=== PATIENT | female | born 1970 | race Caucasian/White ===

== ENCOUNTER → 2021-07-15 13:24 | Outpatient (BNVA) | payer MEDICARE, OTHER, SELFPAY | PROVIDERS: Family Provider Family Medicine; PCP Family Medicine; Visit Provider Psychiatry & Neurology Psychiatry | DX: F43.12 Post-traumatic stress disorder, chronic (principal); F33.2 Major depressive disorder, recurrent severe without psychotic features; F41.1 Generalized anxiety disorder | CPT/HCPCS: 99204 ==

== ENCOUNTER → 2021-08-26 08:07 | Outpatient (BNVA) | payer MEDICARE, OTHER, SELFPAY | PROVIDERS: Family Provider Family Medicine; PCP Family Medicine; Visit Provider Psychiatry & Neurology Psychiatry | DX: F41.1 Generalized anxiety disorder (principal); F33.2 Major depressive disorder, recurrent severe without psychotic features; F43.12 Post-traumatic stress disorder, chronic | CPT/HCPCS: 99214 ==

== ENCOUNTER → 2022-07-14 16:29 | Outpatient (BNVA) | payer MEDICARE, SELFPAY | PROVIDERS: Family Provider Family Medicine; PCP Family Medicine; Visit Provider Nurse Practitioner Psychiatric/Mental Health | DX: Z03.89 Encounter for observation for other suspected diseases and conditions ruled out (principal); F41.1 Generalized anxiety disorder; F43.12 Post-traumatic stress disorder, chronic; F33.41 Major depressive disorder, recurrent, in partial remission | CPT/HCPCS: 80306 ==

== ENCOUNTER → 2022-07-27 11:49 | Outpatient (BNVA) | payer MEDICARE, OTHER, SELFPAY | PROVIDERS: Family Provider Family Medicine; PCP Family Medicine; Visit Provider Nurse Practitioner Psychiatric/Mental Health | DX: Z03.89 Encounter for observation for other suspected diseases and conditions ruled out (principal) | CPT/HCPCS: 80306 ==

== ENCOUNTER 2023-05-17 10:33 | Outpatient (CLI) | payer MEDICARE, OTHER, SELFPAY ==
--- NOTE | 2023-05-17 10:44 | MM_ITS ---
WS: [id number] BILATERAL SCREENING DIGITAL TOMOSYNTHESIS MAMMOGRAM WITH CAD HISTORY: SCREENING COMPARISON: 01/26/2022, 10/07/2020 Bilateral CC and MLO views with tomosynthesis and synthetic mammography submitted. Computer aided det ection analyzed. Breast composition: There are scattered areas of fibroglandular density. No suspicious masses, microc alcifications or architectural distortion. Battery pack generator over the RIGHT pectoralis muscle. MM/[place] [id number] IMPRESSION: BI-RADS: 2-Benign FOLLOW UP: 1 Year Follow-up
== END 2023-05-17 10:34 | disposition home or self-care (01) ==
LOC: RAD 10:40 → MOBLMAM 10:42
PROVIDERS: PCP Family Medicine; Visit Provider Family Medicine
DX: Z12.31 Encounter for screening mammogram for malignant neoplasm of breast (principal)
CPT/HCPCS: 77063; 77067

== ENCOUNTER 2023-12-14 12:54 | Inpatient (IN) | payer MEDICARE, OTHER, SELFPAY ==
[2023-12-14] VITALS (8 sets, daily range): BP systolic 150–193; BP diastolic 84–139; PULSE 97–117; RESP 18; TEMP 36.7–36.9; O2SAT 94–97; BMI 32.9
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
[2023-12-14 13:15] LABS: Basophils # 0.1 10^3/uL (0.0-0.1); Basophils % 0.5 %; Eosinophils % 0.2 %; Hematocrit 49.2 % (36-47); Lymphocytes # 1.1 10^3/uL (0.8-4.8); Lymphocytes % 10.1 %; Mean Corpuscular HGB Conc 31.9 g/dL (30-55); Mean Corpuscular Volume 87.9 fl (85-98); Mean Platelet Volume 11.1 fL (7.4-10.4); Monocytes # 0.6 10^3/uL (0.2-0.9); Monocytes % 5.9 %; Neutrophils # 8.86 10^3/uL (1.8-7.7); Nucleated Red Blood Cells % 0 %; Platelet Count 239 10^3/cmm (157-399); Red Cell Distribution Width 13.4 % (12.1-15.1); White Blood Count 10.67 10^3/uL (3.29-11.43)
[2023-12-14 13:31] LABS: Acetaminophen < 5.0 ug/mL (10-30); Alanine Aminotransferase 54 U/L (0-33); Albumin Level 4.5 g/dL (3.5-5.2); Alkaline Phosphatase 72 U/L (35-105); Anion Gap 16.2 (5-19); Aspartate Amino Transferase 33 U/L (0-32); Blood Urea Nitrogen 23 mg/dL (6-20); Calcium 9.6 mg/dL (8.5-10.5); Carbon Dioxide 25 mmol/L (22-29); Chloride 101 mmol/L (98-107); Glomerular Filtration Rate 75.6 mL/min (90-130); Glucose 110 mg/dL (65-115); Osmolality Calculated 290 mOsm/kg (285-295); Potassium 4.2 mmol/L (3.5-5.1); Salicylate < 0.3 mg/dL (3-10); Sodium 138 mmol/L (136-145); Total Bilirubin 0.7 mg/dL (0.15-1.2); Total Protein 7.5 g/dL (6.6-8.7)
[2023-12-14 13:57] LABS: Influenza A by IFA negative (Negative); Influenza B by IFA negative (Negative)
--- NOTE | 2023-12-14 14:38 | PC.NURSE ---
96 hour hold rights read and reviewed with patient. Patient very tearful stating I don't want to see my family, I cant tell you why or what I know. But I know if the don't come see me I will have my answer. Patient continued to cry, but verbalized understandings of rights. Copy left at bedside.
--- NOTE | 2023-12-14 15:56 | PC.NURSE ---
Patient arrived to unit appearing very anxious. This RN began her assessment and patient was initially cooperative in answering questions. She stated she couldn't remember a lot because she has a TBI and short-term memory loss. When asked if she was allergic to anything other than statins, as that was already listed on her profile, she began crying and replied, I can't trust you. You talked to my family! I told you not to talk to my family. It was then explained that I hadn't talked to her family, but that I had simply seen it on her medical history profile. She continued to insist that this nurse had talked to her family and stated, I'm not talking to you unless you can guess the movie. Either guess the movie that I'm thinking or we're done. Patient continued to cry and said, Andrea is the only one who knows how I feel, but really he doesn't know how I feel! I don't want you to talk to my family. I can't trust you. We're done. She was assured we would not be talking to her family unless she would like us to due to HIPAA and that we had not talked to them. Patient continued to refuse to talk to this RN.
[2023-12-14] MEDS: lisinopril 20 mg Tablet PO ×2 (16:32→20:31)
--- NOTE | 2023-12-14 16:33 | PC.NURSE ---
Patient's blood pressure on arrival to unit was recorded as 180/139. Patient was given a bit of time to rest as she appeared anxious. Blood pressure was taken again and it was 193/[address] Meneses was contacted. He advised this RN give lisinopril 20mg po now and to recheck her blood pressure in 1 hr. Patient took medication and we will recheck in an hour.
--- NOTE | 2023-12-14 17:50 | PC.NURSE ---
Rechecked patient's blood pressure, which read 178/126. Dr. Meneses was notified and he requested this RN put in a one time order for clonidine 0.2mg po.
[2023-12-14] MEDS: cloNIDine 0.1 mg Tablet 0.2 MG PO (17:57)
--- NOTE | 2023-12-14 17:59 | PC.NURSE ---
Patient approached nurses' station and asked when she was supposed to go to bed. This RN told her there wasn't a specific time she was required to go to bed and that if she was feeling tired she could lie down. Patient said, are you sure I won't get in trouble? She was reassured she would not be in trouble. Patient then stated, and you can tell my family that I'm only drinking water if they ask.
[2023-12-14] MEDS: acetaminophen 325 mg Tablet 650 MG PO (18:13)
--- NOTE | 2023-12-14 20:13 | PC.NURSE ---
PT IS SITTING ON BED APPEARS ANXIOUS AND APPREHENSIVE TO SPEAK TO THIS RN. PT PRESENTS VERY PARANOID WONDERING WHY YOU HAVE ALL MY MEDICATIONS BECAUSE I DID NOT SIGN A RELEASE FOR ANY OF YOU TO HAVE THEM. I AM HERE VOLUNTARY AND YOU ARE NOT ALLOWED TO HAVE MY MEDICATIONS. THIS RN ATTEMPTED TO RE-ORIENTATE PT TO SURROUNDINGS AND THAT SHE IS ON A 96 HOUR HOLD AND WILL SEE THE DR. BLACK. EDUCATION COMPLETED ON MEDICATIONS AND WHY THE MEDICATIONS ARE IN THE CHART. PT THEN STATED OH THATS GOOD YOU HAVE MY MEDICINE, ITS REALLY GOOD MY MEDS ARE IMPORTANT. DENIES PAIN. DENIES SI/HI AND AVH AT THIS TIME. PT CONTINUES TO HAVE PARANOIA AND IS GUARDED WITH STAFF. RATES ANXIETY 150/10 WHEN ASKED TO RATE ANXIETY 0/10. PT STATED AFTER WHAT YOU ALL DID TO ME TODAY ITS REALLY UP THERE. RATES DEPRESSION 0/10. PT IS HAVING DELUSIONS AND MAKING BIZZARRE STATEMENTS. ALL QUESTIONS WERE ANSWERED AND SUPPORT WAS VOICED.
[2023-12-14] MEDS: prazosin 5 mg Capsule PO (20:31)
[2023-12-14] MEDS: trazodone 150 mg Tablet 300 MG PO (20:31)
[2023-12-14] MEDS: BuSPIRONE 10 mg Tablet 20 MG PO (20:31)
[2023-12-14] MEDS: prazosin 1 mg Capsule PO (20:31)
[2023-12-14] MEDS: baclofen 10 mg Tablet PO (20:32)
[2023-12-15 06:00] VITALS: BP 146/91; PULSE 100; RESP 16; TEMP 36.7; O2SAT 96
--- NOTE | 2023-12-15 06:08 | PC.NURSE ---
PT RESTED APPROXIMATELY 6-7 HOURS THIS SHIFT. PT WOKE UP SEVERAL TIMES TO USE THE BATHROOM AND FIDGETED AROUND IN HER ROOM. PRN MEDICATION WAS OFFERED BUT PT DECLINED. SUPPORT VOICED.
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
[2023-12-15] MEDS: levothyroxine 125 mcg Tablet PO (09:32)
[2023-12-15] MEDS: meloxicam 7.5 mg tablet PO (09:32)
[2023-12-15] MEDS: fluoxetine 20 mg Capsule 80 MG PO (09:32)
[2023-12-15] MEDS: baclofen 10 mg Tablet PO ×3 (09:32→20:32)
[2023-12-15] MEDS: buPROPion SR (12 HR) 100 mg Tablet 200 MG PO (09:32)
[2023-12-15] MEDS: ezetimibe 10 mg Tablet PO (09:32)
[2023-12-15] MEDS: lisinopril 20 mg Tablet PO ×2 (09:36→20:32)
[2023-12-15] MEDS: BuSPIRONE 10 mg Tablet 20 MG PO ×2 (09:36→20:31)
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
[2023-12-15 14:00] VITALS: BP 169/113; PULSE 85; RESP 16; TEMP 36.8; O2SAT 94
[2023-12-15 20:31] VITALS: RESP 18; O2SAT 95
[2023-12-15] MEDS: oxyCODONE-APAP 10-325 mg Tablet 1 TAB PO (20:31)
[2023-12-15] MEDS: trazodone 150 mg Tablet 300 MG PO (20:32)
[2023-12-15] MEDS: amlodipine 5 mg Tablet PO (20:32)
[2023-12-15] MEDS: prazosin 5 mg Capsule PO (20:32)
[2023-12-15] MEDS: prazosin 1 mg Capsule PO (20:32)
[2023-12-15 20:41] VITALS: BP 158/97; PULSE 99; RESP 16; TEMP 36.8; O2SAT 95
[2023-12-15 22:25] VITALS: BP 104/71; PULSE 99; RESP 16; O2SAT 93
[2023-12-16 06:00] VITALS: BP 124/84; PULSE 88; RESP 16; TEMP 36.4; O2SAT 94
--- NOTE | 2023-12-16 06:19 | PC.NURSE ---
PT HAS RESTED ON AND OFF THROUGHOUT THE SHIFT. DID WAKE BRIEFLY STATING SHE HAD A NIGHT TERROR AND IT WAS DIFFICULT TO GO BACK TO SLEEP. PT WAS ABLE TO REST AND HAS SLEPT APPROXIMATELY 7-8 HOURS THIS SHIFT. PT CURRENTLY RESTING IN BED AND SHOWS NO SIGNS OF DISTRESS.
[2023-12-16] MEDS: fluoxetine 20 mg Capsule 80 MG PO (07:58)
[2023-12-16] MEDS: ezetimibe 10 mg Tablet PO (07:58)
[2023-12-16] MEDS: baclofen 10 mg Tablet PO ×3 (07:58→20:27)
[2023-12-16] MEDS: meloxicam 7.5 mg tablet PO (07:58)
[2023-12-16] MEDS: levothyroxine 125 mcg Tablet PO (07:59)
[2023-12-16] MEDS: buPROPion SR (12 HR) 100 mg Tablet 200 MG PO (07:59)
[2023-12-16] MEDS: amlodipine 5 mg Tablet PO (07:59)
[2023-12-16] MEDS: BuSPIRONE 10 mg Tablet 20 MG PO ×2 (08:00→20:27)
[2023-12-16] MEDS: lisinopril 20 mg Tablet PO ×2 (08:00→20:27)
[2023-12-16 14:00] VITALS: BP 166/104; PULSE 96; RESP 20; TEMP 36.8; O2SAT 97
--- NOTE | 2023-12-16 14:12 | P.NPUPN_ITS ---
Subjective NPU 2 Subjective: 53-year-old with traumatic brain injury and history of anxiety and reported psychosis admitted with unusual behavior. Patient did not show any evidence of psychosis. She had appeared anxious and somewhat isolative on the milieu. She had reported having problems with working memory and stated that she had felt relieved that her may be coming home soon. She was pleasant and redirectable on the milieu. She showed no evidence of aggression. The patient had reported some difficulties with falling asleep. She had reported some pain issues. Mental Status Exam 2 MSE Comments: Patient is a casually dressed white female who was pleasant and cooperative on interview. Her gait was adequate her hygiene was fair. There was no evidence of any abnormal involuntary motor movements tics or tremors appreciated. Her speech was monotone in quality and normal in rate and volume. Her thought process Was linear logical and goal-directed. She endorsed no suicidal or homicidal ideation. She did not appear to be responding to internal stimuli. There was no clear evidence of delusional thinking. She described her mood as better. Her affect appeared less anxious and mood congruent. Her impulse control was fair. Her insight appeared limited. Her judgment was poor. Her recent and remote memory were not not tested. Her attention span appeared adequate. Vitals/I&O/Wt Last Vital Signs Temp 97.5 F L 12/16/23 06:00 Pulse 88 12/16/23 06:00 Resp 16 12/16/23 06:00 BP 124/84 12/16/23 06:00 Pulse Ox 94 12/16/23 06:00 O2 Del Method Room Air 12/16/23 06:00 Data NPU 12/14/23 13:08 12/14/23 13:08 A&P Assessment and plan (1) Post-traumatic stress disorder, chronic: (2) Major depressive disorder, recurrent severe without psychotic features: (3) Suicidal ideation: (4) Generalized anxiety disorder: Plan 53-year-old female with a history of traumatic brain injury with history of impulsivity admitted with bizarre behavior after becoming anxious stemming from her 's medical illness leading to hospitalization and some disagreement with her 's physicians. She will continue remain on the unit and examined for any evidence of unstable behavior. 1. ?Encourage individual, group and milieu therapy. 2. Recommend sober living treatment at the highest level of care to which the patient is willing to commit. 3. Continue q-15 minute checks for safety 4. Monitor for evidence of worsening psychosis. 5. Continue medications, patient appears better and may be candidate for discharge tomconrad. Involuntary Hold Information 2 96 Hour Hold: 96 Hour Involuntary Admission: Yes 96 Hour Hold Ending Date: 12/20/23 96 Hour Hold Ending Time: 14:26 Attestations NPU 2 Medical Necessity Statement*: Inpatient hospitalization is medically necessary and deemed to be the clinically appropriate intervention at this time.? Medications will be initiated and adjusted as clinically indicated.? The patient?s likely length of stay is 1-2 days.? Coding Level of Care Code Acute Code for g Fwd Diagnoses Post-traumatic stress disorder, chronic F43.12 Major depressive disorder, recurrent severe without psychotic features F33.2 Suicidal ideation R45.851 Generalized anxiety disorder F41.1
[2023-12-16 16:28] VITALS: BP 166/104
[2023-12-16] MEDS: cloNIDine 0.1 mg Tablet PO (16:28)
[2023-12-16 17:46] VITALS: BP 125/98
[2023-12-16 20:14] VITALS: BP 164/109; PULSE 90; RESP 18; TEMP 37.1; O2SAT 96
[2023-12-16] MEDS: prazosin 1 mg Capsule PO (20:27)
[2023-12-16] MEDS: prazosin 5 mg Capsule PO (20:27)
[2023-12-17 06:00] VITALS: BP 171/113; PULSE 77; RESP 15; TEMP 36.8; O2SAT 96
[2023-12-17] MEDS: meloxicam 7.5 mg tablet PO (08:23)
[2023-12-17] MEDS: ezetimibe 10 mg Tablet PO (08:23)
[2023-12-17] MEDS: baclofen 10 mg Tablet PO (08:23)
[2023-12-17] MEDS: fluoxetine 20 mg Capsule 80 MG PO (08:23)
[2023-12-17] MEDS: lisinopril 20 mg Tablet PO (08:23)
[2023-12-17] MEDS: amlodipine 5 mg Tablet PO (08:23)
[2023-12-17] MEDS: buPROPion SR (12 HR) 100 mg Tablet 200 MG PO (08:23)
[2023-12-17] MEDS: BuSPIRONE 10 mg Tablet 20 MG PO (08:23)
[2023-12-17] MEDS: levothyroxine 125 mcg Tablet PO (08:23)
[2023-12-17] MEDS: loperamide 2 mg Capsule PO (09:57)
[2023-12-17 12:26] VITALS: BP 171/113; PULSE 77; RESP 15; TEMP 36.8; O2SAT 96
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
== END 2023-12-17 13:43 | disposition home or self-care (01) | DRG 885 ==
LOC: ER 14:14 → NP 14:46
PROVIDERS: Admitting Provider Psychiatry & Neurology Psychiatry; Emergency Provider Family Medicine; PCP Family Medicine; Visit Provider Psychiatry & Neurology Psychiatry
DX: F33.2 Major depressive disorder, recurrent severe without psychotic features (principal); F43.12 Post-traumatic stress disorder, chronic; F41.1 Generalized anxiety disorder; I10 Essential (primary) hypertension; H35.30 Unspecified macular degeneration; Z87.820 Personal history of traumatic brain injury
CPT/HCPCS: 36415; 80053; 80307; 85025; 87804; 97150; 97165; 99285

== ENCOUNTER 2024-05-20 09:59 | Outpatient (CLI) | payer MEDICARE, OTHER, SELFPAY ==
--- NOTE | 2024-05-20 10:06 | MM_ITS ---
WS: [id number] SCREENING DIGITAL TOMOSYNTHESIS MAMMOGRAM WITH CAD HISTORY: SCREENING COMPARISON: 05/17/2023, 10/07/2020 and 01/26/2022 Bilateral CC and MLO with tomosynthesis views submitted. Synthetic mammography reviewed. Computer aid ed detection analyzed. Breast composition: There are scattered areas of fibroglandular density. No suspicious masses, microc alcifications or architectural distortion. MM/[place] [id number] IMPRESSION: BI-RADS: 2-Benign FOLLOW UP: 1 Year Follow-up
== END 2024-05-20 10:00 | disposition home or self-care (01) ==
PROVIDERS: PCP Family Medicine; Visit Provider Nurse Practitioner Family
DX: Z12.31 Encounter for screening mammogram for malignant neoplasm of breast (principal); R92.323 Mammographic fibroglandular density, bilateral breasts
CPT/HCPCS: 77063; 77067

== ENCOUNTER → 2024-12-10 14:07 | Outpatient (BNVA) | payer MEDICARE, OTHER, SELFPAY | PROVIDERS: PCP Family Medicine; Visit Provider Podiatrist Foot & Ankle Surgery | DX: M79.672 Pain in left foot (principal); L03.116 Cellulitis of left lower limb; L60.3 Nail dystrophy | CPT/HCPCS: 73630; 99203 ==

== ENCOUNTER → 2025-03-26 13:14 | Outpatient (BNVA) | payer MEDICARE, OTHER, SELFPAY | PROVIDERS: PCP Family Medicine; Visit Provider Podiatrist Foot & Ankle Surgery | DX: L60.8 Other nail disorders (principal); L60.3 Nail dystrophy | CPT/HCPCS: 99213 ==

== ENCOUNTER → 2025-06-25 15:19 | Outpatient (BNVA) | payer MEDICARE, OTHER, SELFPAY | PROVIDERS: PCP Family Medicine; Visit Provider Podiatrist Foot & Ankle Surgery | DX: L60.8 Other nail disorders (principal); L60.3 Nail dystrophy; S91.332A Puncture wound without foreign body, left foot, initial encounter; X58.XXXA Exposure to other specified factors, initial encounter | CPT/HCPCS: 99213 ==

== ENCOUNTER → 2025-09-23 11:11 | Outpatient (BNVA) | payer MEDICARE, OTHER, SELFPAY | PROVIDERS: PCP Family Medicine; Visit Provider Obstetrics & Gynecology | DX: Z01.419 Encounter for gynecological examination (general) (routine) without abnormal findings (principal) | CPT/HCPCS: 87624 ==

== ENCOUNTER → 2025-09-30 13:37 | Outpatient (BNVA) | payer MEDICARE, OTHER, SELFPAY | PROVIDERS: PCP Family Medicine; Visit Provider Podiatrist Foot & Ankle Surgery | DX: E11.42 Type 2 diabetes mellitus with diabetic polyneuropathy (principal); L60.8 Other nail disorders; L60.3 Nail dystrophy | CPT/HCPCS: 99213 ==